=== PATIENT | male | born 1985 | race Caucasian/White ===

== ENCOUNTER 2022-02-18 21:52 | Emergency (ER) | payer BC ==
[2022-02-18] MEDS ORDERED: Cephalexin 500 MG CAP ONE (22:22)
[2022-02-18] MEDS ORDERED: Sulfameth/Trimethoprim DS 800-160mg TAB ONE (22:22)
== END 2022-02-18 22:34 | disposition home or self-care (01) ==
LOC: MADERS 21:52
DX: L03.116 Cellulitis of left lower limb (principal)
CPT/HCPCS: 99283